=== PATIENT | male | born 1955 | race Caucasian/White ===

== ENCOUNTER 2019-06-08 09:35 | Observation (INO) | payer OTHER ==
[~2019-06-08] VITALS: Ht 180.3 cm; Wt 99.1 kg
[2019-06-08] MEDS ORDERED: nitroGLYCERIN 0.4mg SUBLingual tab SL PRN ×2 (10:10→11:30)
[2019-06-08 10:27] LABS: BASOPHILS # (AUTO) 0.1 X10'3 (0-0.2); BASOPHILS % (AUTO) 0.8 % (0-1); EOSINOPHILS # (AUTO) 0.1 X10'3 (0-0.9); EOSINOPHILS % (AUTO) 1.9 % (0-6); HEMATOCRIT 43.1 % (42.0-52.0); HEMOGLOBIN 14.9 g/dl (14.0-17.9); LYMPHOCYTES # (AUTO) 2.8 X10'3 (1.1-4.8); LYMPHOCYTES % (AUTO) 40.6 % (21-51); MEAN CORPUSCULAR HEMOGLOBIN 30.8 PG (27.0-31.0); MEAN CORPUSCULAR HGB CONC 34.6 g/dL (33.0-36.5); MEAN CORPUSCULAR VOLUME 89.1 FL (78-98); MONOCYTES # (AUTO) 0.5 X10'3 (0-0.9); MONOCYTES % (AUTO) 7.4 % (2-12); NEUTROPHILS # (AUTO) 3.4 X10'3 (1.8-7.7); NEUTROPHILS % (AUTO) 49.3 % (42-75); PLATELET COUNT 297 X10'3 (140-440); RED BLOOD COUNT 4.84 X10'6 (4.70-6.10)
[2019-06-08 10:39] LABS: ALANINE AMINOTRANSFERASE 41 U/L (12-78); ALBUMIN 3.4 G/DL (3.4-5.0); ALBUMIN/GLOBULIN RATIO 0.9 (1.1-1.5); ALKALINE PHOSPHATASE 66 IU/L (46-116); ANION GAP 5 (8-16); ASPARTATE AMINO TRANSFERASE 24 U/L (10-37); BILIRUBIN,TOTAL 0.5 MG/DL (0.1-1.0); BLOOD UREA NITROGEN 17 MG/DL (7-18); BUN/CREATININE RATIO 18.9 (5.4-32.0); CALCIUM 8.6 MG/DL (8.5-10.1); CHLORIDE 105 MMOL/L (99-107); GLUCOSE 98 MG/DL (70-104); POTASSIUM 4.5 MMOL/L (3.5-5.1); SODIUM 137 MMOL/L (135-145); TOTAL CARBON DIOXIDE 27.1 MMOL/L (24-32); TOTAL PROTEIN 7.4 G/DL (6.4-8.2); eGFR 86 ML/MIN
[2019-06-08] MEDS ORDERED: mag hydrox/Alum hydrox/simeth 30ml oral suspension PO PRN (11:25)
[2019-06-08] MEDS ORDERED: magnesium hydroxide 30ml (MOM) UD suspension PO PRN (11:25)
[2019-06-08] MEDS ORDERED: magnesium 2GM in 50ml NS 50 ML IV PRN (11:25)
[2019-06-08] MEDS ORDERED: potassium Cl 20 mEq SR tablet PO PRN ×2 (11:25)
[2019-06-08] MEDS ORDERED: potassium CL 10mEq/100ml bag 100 ML IV PRN ×2 (11:25)
[2019-06-08] MEDS ORDERED: morphine 2 MG/ML inj. syringe IV PRN (11:25)
[2019-06-08] MEDS ORDERED: ondansetron/PF 4mg/2ml inj IV PRN (11:25)
[2019-06-08] MEDS ORDERED: magnesium 4gm in 100ml NS 100 ML IV PRN (11:25)
[2019-06-08] MEDS ORDERED: regadenoson 0.4mg/5ml syringe IV PRN (11:30)
[2019-06-08] MEDS ORDERED: aminophylline 250mg/10ml inj. IV PRN (11:30)
[2019-06-08] MEDS ORDERED: metoprolol tartrate 1mg/ml inj IV PRN (11:30)
[2019-06-08] MEDS: normal saline 1000ml 1,000 ML IV SCH ×2 (11:57→14:55)
[2019-06-08] MEDS ORDERED: NO HOME MEDS (12:39)
[2019-06-08 12:46] LABS: MAGNESIUM 1.9 MG/DL (1.5-2.4)
[2019-06-08] MEDS ORDERED: carVEDilol 3.125mg tablet PO ONE (13:25)
[2019-06-08] MEDS ORDERED: hydrALAZINE 20mg/ml inj. IV PRN (13:35)
[2019-06-08 14:00] VITALS: BP 173/93
[2019-06-08] MEDS: lisinopril 20mg tablet PO SCH (14:41)
[2019-06-08 15:00] VITALS: BP 165/97
[2019-06-08 18:00] VITALS: BP 165/97
--- NOTE | 2019-06-08 18:13 | NUR ---
Problems reprioritized. Patient report given, questions answered & plan of care reviewed with LIONEL Garcia.
--- NOTE | 2019-06-08 18:20 | NUR ---
received patient report from LIONEL Liang and LIONEL Goncalves "o"
[2019-06-08] MEDS: carVEDilol 3.125mg tablet PO SCH (20:15)
[2019-06-08] MEDS: acetaminophen 325mg tablet PO PRN (21:55)
[2019-06-09] MEDS: acetaminophen 325mg tablet PO PRN (01:34)
[2019-06-09 02:24] LABS: BASOPHILS # (AUTO) 0.1 X10'3 (0-0.2); BASOPHILS % (AUTO) 0.8 % (0-1); EOSINOPHILS # (AUTO) 0.2 X10'3 (0-0.9); EOSINOPHILS % (AUTO) 2.6 % (0-6); HEMATOCRIT 42.2 % (42.0-52.0); HEMOGLOBIN 14.4 g/dl (14.0-17.9); LYMPHOCYTES # (AUTO) 2.7 X10'3 (1.1-4.8); LYMPHOCYTES % (AUTO) 39.2 % (21-51); MEAN CORPUSCULAR HEMOGLOBIN 30.6 PG (27.0-31.0); MEAN CORPUSCULAR HGB CONC 34.2 g/dL (33.0-36.5); MEAN CORPUSCULAR VOLUME 89.4 FL (78-98); MONOCYTES # (AUTO) 0.4 X10'3 (0-0.9); MONOCYTES % (AUTO) 5.5 % (2-12); NEUTROPHILS # (AUTO) 3.5 X10'3 (1.8-7.7); NEUTROPHILS % (AUTO) 51.9 % (42-75); PLATELET COUNT 276 X10'3 (140-440); RED BLOOD COUNT 4.72 X10'6 (4.70-6.10); WHITE BLOOD COUNT 6.8 X10'3 (4.5-11.0)
[2019-06-09 02:37] LABS: ALANINE AMINOTRANSFERASE 34 U/L (12-78); ALBUMIN 3.1 G/DL (3.4-5.0); ALBUMIN/GLOBULIN RATIO 0.8 (1.1-1.5); ALKALINE PHOSPHATASE 63 IU/L (46-116); ANION GAP 8 (8-16); ASPARTATE AMINO TRANSFERASE 22 U/L (10-37); BILIRUBIN,TOTAL 0.3 MG/DL (0.1-1.0); BLOOD UREA NITROGEN 18 MG/DL (7-18); BUN/CREATININE RATIO 21.4 (5.4-32.0); CALCIUM 8.6 MG/DL (8.5-10.1); CHLORIDE 105 MMOL/L (99-107); CREATININE 0.84 MG/DL (0.60-1.10); GLUCOSE 111 MG/DL (70-104); MAGNESIUM 1.9 MG/DL (1.5-2.4); POTASSIUM 3.9 MMOL/L (3.5-5.1); SODIUM 137 MMOL/L (135-145); TOTAL CARBON DIOXIDE 24.1 MMOL/L (24-32); TOTAL PROTEIN 6.8 G/DL (6.4-8.2); eGFR > 90 ML/MIN
[2019-06-09] MEDS: normal saline 1000ml 1,000 ML IV SCH (04:40)
--- NOTE | 2019-06-09 06:24 | NUR ---
gave report to LINOEL Abdul
[2019-06-09] MEDS ORDERED: enoxaparin 40mg/0.4ml syringe SQ SCH (08:00)
[2019-06-09] MEDS ORDERED: K and/or MAG REPLACEMENT MC SCH (08:00)
[2019-06-09] MEDS: carVEDilol 3.125mg tablet PO SCH (08:13)
[2019-06-09] MEDS: lisinopril 20mg tablet PO SCH (08:14)
--- NOTE | 2019-06-09 09:30 | NUR ---
Pt left for IRENE in wheelchair, no noted stress
[2019-06-09 10:11] VITALS: BP 142/92
[2019-06-09 10:16] VITALS: BP 131/78
[2019-06-09 10:17] VITALS: BP 171/100
[2019-06-09 10:18] VITALS: BP 180/95
[2019-06-09 10:19] VITALS: BP 174/94
[2019-06-09 10:20] VITALS: BP 164/93
--- NOTE | 2019-06-09 14:24 | NUR ---
paged hospitalist PAGER ID: [phone] MESSAGE: [id number], IRENE done, please review report. Pt wants to go AMA, thank you!
--- NOTE | 2019-06-09 14:55 | NUR ---
Pt signed AMA form, left with at 14:55. All personal belongings were taken, pt ambulates with normal gait. Charge nurse explained to pt that per Dr. Luevano he has a leaky valve and aneursm, and he is in bad shape. Pt advised that he has a PCP, and he will follow up with PCP.
== END 2019-06-09 14:55 | disposition left against medical advice (07) ==
LOC: ER 09:36 → ED HOLD 11:22 → MED 3N 13:58
PROVIDERS: ADMIT Family Medicine; ATTEND Family Medicine
DX: R07.2 Precordial pain (principal); I16.0 Hypertensive urgency; I10 Essential (primary) hypertension; I71.9 Aortic aneurysm of unspecified site, without rupture; Z87.891 Personal history of nicotine dependence; Z79.899 Other long term (current) drug therapy; Z88.8 Allergy status to other drugs, medicaments and biological substances
CPT/HCPCS: 36415; 71045; 78452; 80053; 83735; 83880; 84484; 85025; 87081; 93005; 93017; 93306; 99284; A9500; G0378; J2785; J7030; J1650